=== PATIENT | male | born 1975 | race Caucasian/White ===

== ENCOUNTER → 2024-08-10 11:59 | Outpatient (CLI) | payer BC, OTHER, SELFPAY ==
--- NOTE | 2024-08-10 12:01 | DI.RAD.S_ITS ---
PROCEDURE: XR SINUS MIN 3V INDICATIONS: sinus congestion x 4 months, not improving TECHNIQUE: 3 views of the sinuses were acquired. COMPARISON: None. FINDINGS: Sinuses: The visualized sinuses demonstrate no air-fluid levels . There is haziness in the left maxillary sinus possibly a retention cyst. Bones: No suspicious bony lesions. Nasal septum is midline. IMPRESSION: No air-fluid levels to suggest acute sinusitis. Possible left maxillary retention cyst. Dictated by: Lacy Denise M.D. on 08/10/2024 at 13:36 Approved by: Lacy Denise M.D. on 08/10/2024 at 13:38
== END ==
LOC: RAD 12:00
PROVIDERS: PCP Family Medicine; Referring Provider Family Medicine; Visit Provider Family Medicine
DX: R09.81 Nasal congestion (principal)
CPT/HCPCS: 70220

== ENCOUNTER 2024-10-18 18:13 | Emergency (ER) | payer BC, OTHER, SELFPAY ==
[2024-10-18 18:16] VITALS: BP 127/76; PULSE 66; RESP 16; TEMP 36.1; O2SAT 97; BMI 29.5
--- NOTE | 2024-10-18 18:19 | DI.RAD.S_ITS ---
PROCEDURE: XR KNEE RT 3V INDICATIONS: pain TECHNIQUE: 3 views of the knee were acquired. COMPARISON: None. FINDINGS: Bones: No acute fractures or dislocations. No suspicious bony lesions. 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 Soft tissues: No joint effusion. No suspicious soft tissue calcifications. IMPRESSION: No acute osseous abnormality. If there is continued clinical concern or persistent symptoms, repeat radiographs or cross-sectional imaging (e.g. CT, MRI) may be helpful for further evaluation. Approved by: Tai Hickey M.D. on 10/18/2024 at 19:46
--- NOTE | 2024-10-18 20:42 | PC.NURSE ---
Pt states that he was helping in the garden about a week ago and lifted a potted plant. Since then has had pain, and once had his right knee go out from under him. Pt states that he bought a knee brace about 3 days ago. It is helping but, at work when he has to crouch down he has more pain.
--- NOTE | 2024-10-18 21:04 | ED.LOWEXIN ---
HPI - Extremity Injury (Lower) General Chief Complaint: Extremity Injury, Lower Stated Complaint: R knee weakness Time Seen by Provider: 10/18/24 21:04 Source: patient Mode of arrival: Ambulatory History of Present Illness HPI Narrative: 49-year-old male with past medical history of hyperlipidemia, comes into the ED from home for evaluation of nontraumatic right knee pain, states it happened a proximally 1 and half weeks ago, states it happened when he was bending and stood up, he has been using a knee brace with improvement but due to persistent symptoms decided come into the ED for further evaluation treatment. He denies any numbness weakness tingling to the lower extremity. Denies any other injuries. Related Data Home Medications Medication Instructions Recorded Confirmed atorvastatin 40 mg tablet 40 mg PO DAILY 08/10/24 08/10/24 loratadine 10 mg tablet (Claritin) 10 mg PO DAILY 08/10/24 08/10/24 Previous Rx's Medication Instructions Recorded cetirizine 10 mg capsule (Zyrtec) 10 mg PO DAILY #60 caps 08/10/24 fluticasone propionate 50 1 spray intranasal DAILY #16 grams 08/10/24 mcg/actuation nasal spray,suspension (Flonase Allergy Relief) naproxen 500 mg tablet (Naprosyn) 500 mg PO BID PRN pain 1 week #14 10/18/24 tabs Allergies Allergy/AdvReac Type Severity Reaction Status Date / Time No Known Drug Allergies Allergy Verified 10/18/24 18:16 Review of Systems Review of Systems Narrative: General: Denies fever, chills, weight loss HEENT: Denies headache, eye drainage, eye irritation, head trauma, sore throat, voice change Cardiovascular: Denies any chest pain, palpitations, tachycardia Respiratory: Denies any shortness of breath, cough, wheeze, stridor GI/: Denies any abdominal pain, nausea, vomiting, diarrhea, bright red blood per rectum, melanotic stools, urinary frequency, urinary retention, dysuria, hematuria MSK: Positive right knee pain Skin: Denies any rashes, lesions, discoloration Neuro: Denies any headache, lightheadedness, dizziness, fainting, weakness Psych: Denies SI/HI Patient History Medical History (Updated 10/18/24 @ 21:14 by Blaine Ryan DO) Sinus congestion Sleep apnea (~2023) Allergies Depression (~2016) Anxiety (~2016) Migraines (~2017) Headache (~2017) Foot pain (~2003) Ankle pain (~1992) Chicken pox (~1981) Tinnitus (~2011) History of urinary incontinence (~2023) Gastric ulcer (~2011) Surgical History (Updated 08/01/24 @ 18:50 by Cierra Diamond) Anesthesia [place] teeth removed (~1994) History of foot surgery (~07/24/23) Family History (Updated 08/01/24 @ 18:51 by Cierra Diamond) Father Diabetes mellitus History of heart disease Pancreatitis Mother Diabetes mellitus Smoking Status: Former smoker Exam Narrative Exam Narrative: General: Cooperative, well-developed, not in acute distress HEENT: Normocephalic, atraumatic, PERRLA, normal sclera, eyelids normal Neck: Active full range of motion, atraumatic Chest: Normal to inspection, negative crepitus, no overlying erythema ecchymosis Respiratory: Normal respiratory effort, not in acute respiratory distress, clear to auscultation bilaterally negative cough, wheeze, tachypnea, rhonchi, rales Cardiology: Regular rate rhythm negative gallop, murmur, rubs GI/: No tenderness to palpation, soft, non rigid, normal to inspection, exam deferred MSK: Patient without any tenderness to palpation of the bony prominence, full active and passive range of motion of the right knee, vascularly intact Skin: No rashes or lesions noted Neuro: Alert awake oriented x3, moves all 4 extremities spontaneously, cranial nerves intact, able to answer all questions appropriately follows commands appropriately Psych: Cooperative, negative suicidal or homicidal ideations Initial Vital Signs Initial Vital Signs: Vital Signs Temperature 97.0 F L 10/18/24 18:16 Pulse Rate 66 10/18/24 18:16 Respiratory Rate 16 10/18/24 18:16 Blood Pressure 127/76 10/18/24 18:16 Pulse Oximetry 97 10/18/24 18:16 Oxygen Delivery Method Room Air 10/18/24 18:16 Course Orders Ordered: ED Orders 10/18/24 18:19 XR knee RT 3V Stat Vital Signs Vital signs: Vital Signs - 8 hr 10/18/24 18:16 Temperature 97.0 F L Pulse Rate 66 Respiratory Rate 16 Blood Pressure 127/76 Pulse Oximetry 97 Oxygen Delivery Method Room Air MDM - Extremity Injury (Lower) Differential Diagnosis Differential diagnosis: Likely other (Knee fracture, knee sprain) Imaging Data Extremity x-ray #1: Radiologist's Impression: [address] [address] XRay Report Signed Patient: Justin Ledesma MR#: [id number] : 1975 Acct:[id number] Age/Sex: 49 / M Date of Service: 10/18/24 Loc: ED Accession Number: [id number] Procedure: XR knee RT 3V Ordering Provider: Blaine Ryan D.O. PROCEDURE: XR KNEE RT 3V INDICATIONS: pain TECHNIQUE: 3 views of the knee were acquired. COMPARISON: None. FINDINGS: Bones: No acute fractures or dislocations. No suspicious bony lesions. 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 Soft tissues: No joint effusion. No suspicious soft tissue calcifications. IMPRESSION: No acute osseous abnormality. If there is continued clinical concern or persistent symptoms, repeat radiographs or cross-sectional imaging (e.g. CT, MRI) may be helpful for further evaluation. [facility] Narrative Medical decision making narrative: 41-year-old male history of hyperlipidemia presenting for a nontraumatic right knee pain started approximately 1 and half weeks ago when he was bending and stood up. He states that he has had improvement of symptoms by using an [id number] knee brace but due to persistent symptoms decided come into the ED for further evaluation treatment. On exam patient lower extremity neurovascularly intact, he is able to stand bear weight ambulate unassisted. He has no overlying erythema ecchymosis gross deformity. X-ray was performed without any acute traumatic injuries. Patient was offered crutches and knee immobilizer with but he states that his [id number] 1 is more than enough. I instructed the patient to follow up with his primary care and orthopedic surgery in outpatient setting he was given strict return precautions he verbalized understanding of this and agrees to being discharged home with outpatient follow up Discharge Plan Departure Patient Disposition: Home Clinical Impression: Acute pain of right knee Instructions: DI for Knee Pain Activity Restrictions/Additional Instructions: Please follow up with the primary care and orthopedic surgery if your symptoms persist Please read the discharge instructions sheet carefully and bring all papers to all doctor follow-up visits, as it may contain information that your doctor may want to see. Disease processes change and evolve, if your symptoms worsen or if you develop any new symptoms that are concerning to you please return for evaluation. Your evaluation today does not show any evidence of any life-threatening/serious illnesses requiring admission to the hospital or surgery. Please follow-up with your doctor for re-evaluation in approximately 1 day. Seek immediate medical attention for any worrisome symptoms. *If you do not have a primary care provider please contact the [facility] Resource line at [phone]. They will ask some questions about your medical history and help get you set up with a doctor in the community. Prescriptions: New naproxen [Naprosyn] 500 mg tablet 500 mg PO BID PRN (Reason: pain) 7 Days Qty: 14 0RF No Action atorvastatin 40 mg tablet 40 mg PO DAILY loratadine [Claritin] 10 mg tablet 10 mg PO DAILY Zyrtec 10 mg capsule 10 mg PO DAILY Qty: 60 0RF fluticasone propionate [Flonase Allergy Relief] 50 mcg/actuation spray,suspension 1 spray intranasal DAILY Qty: 16 0RF Rx Instructions: administer into each nostril Referrals: Love Levine MD [Primary Care Provider] - Stand Alone Forms: Patient Portal/API/Survey
== END 2024-10-18 21:20 | disposition home or self-care (01) ==
PROVIDERS: Emergency Provider Student in an Organized Health Care Education/Training Program; PCP Family Medicine
DX: M25.561 Pain in right knee (principal)
CPT/HCPCS: 73562; 99281; 99283

== ENCOUNTER → 2024-11-14 15:39 | Outpatient (CLI) | payer BC, OTHER, SELFPAY ==
[2024-11-14 17:37] LABS: Cholesterol 169 mg/dL (140-199); HDL Cholesterol 49 mg/dL (40-60); LDL Cholesterol Calculated 104 mg/dL (<100); Triglycerides 79 mg/dL (35-150)
== END ==
PROVIDERS: PCP Family Medicine; Referring Provider Family Medicine; Visit Provider Family Medicine
DX: E78.5 Hyperlipidemia, unspecified (principal); Z13.1 Encounter for screening for diabetes mellitus
CPT/HCPCS: 36415; 80061; 83036

== ENCOUNTER → 2025-03-01 15:48 | Outpatient (CLI) | payer BC, OTHER, SELFPAY ==
--- NOTE | 2025-03-01 15:49 | DI.RAD.S_ITS ---
PROCEDURE: XR FOOT LT 2V INDICATIONS: discoordinated gait, PT requestig assessment of great toe TECHNIQUE: 3 views of the foot were acquired. COMPARISON: None. FINDINGS: Bones: Moderate metatarsus abductus and slight hammertoe deformities 2nd through 5th digits. There is dorsal spurring over the 1st MTT region . 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 There is mild degeneration of the interphalangeal joints Soft tissues: No soft tissue abnormality. IMPRESSION: Chronic findings Dictated by: Roni Schneider M.D. on 03/02/2025 at 11:06 Approved by: Roni Schneider M.D. on 03/02/2025 at 11:07
--- NOTE | 2025-03-01 15:49 | DI.RAD.S_ITS ---
PROCEDURE: XR FOOT RT 2V INDICATIONS: discoordinated gait TECHNIQUE: Two views of the foot were acquired. COMPARISON: None. FINDINGS: Bones: There are no osseous abnormalities Joints: Severe 1st MTP and moderate 2nd through 5th DIP degeneration noted Soft tissues: Mild diffuse soft tissue swelling IMPRESSION: Degeneration Dictated by: Roni Schneider M.D. on 03/02/2025 at 11:07 Approved by: Roni Schneider M.D. on 03/02/2025 at 11:08
== END ==
PROVIDERS: PCP Family Medicine; Referring Provider Family Medicine; Visit Provider Family Medicine
DX: M19.072 Primary osteoarthritis, left ankle and foot (principal); M19.071 Primary osteoarthritis, right ankle and foot; M21.6X2 Other acquired deformities of left foot; R26.9 Unspecified abnormalities of gait and mobility; M25.569 Pain in unspecified knee
CPT/HCPCS: 73620

== ENCOUNTER 2025-04-28 08:11 | Emergency (ER) | payer BC, OTHER, SELFPAY ==
[2025-04-28] VITALS (7 sets, daily range): BP systolic 115–136; BP diastolic 56–75; PULSE 77–90; RESP 16–18; TEMP 37.6; O2SAT 94–98; BMI 31.5
--- NOTE | 2025-04-28 08:41 | DI.RAD.S_ITS ---
PROCEDURE: XR CHEST 1V INDICATIONS: short of breath TECHNIQUE: One view of the chest was acquired. COMPARISON: None. FINDINGS: Surgical changes and devices: None. Lungs and pleura: Lungs are clear. No pleural effusions or pneumothorax. Mediastinum: Mediastinal contours appear normal. Heart size is normal. Bones and chest wall: No suspicious bony lesions. Overlying soft tissues appear unremarkable. IMPRESSION: No acute cardiopulmonary abnormality is seen. Dictated by: Dandre Ernandez M.D. on 04/28/2025 at 8:58 Approved by: Dandre Ernandez M.D. on 04/28/2025 at 9:02
[2025-04-28 09:00] LABS: Strep Grp A by PCR Rapid Negative (Negative)
[2025-04-28] MEDS: BENZONATATE 100 MG CAPSULE PO (09:02)
[2025-04-28 09:08] LABS: Influenza A - CEPHEID Flu A POSITIVE (NEGATIVE); Influenza B - CEPHEID Flu B NEGATIVE (NEGATIVE)
[2025-04-28 09:09] LABS: COVID-19 CEPHEID 4-PLEX PCR Negative (Negative)
[2025-04-28] MEDS: ALBUTEROL 2.5 MG/3 ML NEB (ADULT) INH (09:50)
--- NOTE | 2025-04-28 20:17 | ED.SOB ---
HPI - SOB/Dyspnea General Chief Complaint: Shortness of Breath/Dyspnea Stated Complaint: Fever, cough feels like there is hot sand in lungs Time Seen by Provider: 04/28/25 08:17 Source: patient Mode of arrival: Ambulatory Limitations: no limitations History of Present Illness HPI Narrative: This 49 yo male presents with sore throat and cough and aches and shortness of breath for 2 days. No known infectious contacts. Patient is a former smoker. MD Complaint: shortness of breath and cough Consistency/Duration: constant Relieving factors: bronchodilators Related Data Previous Rx's ?Medication ?Instructions ?Recorded atorvastatin 40 mg tablet 40 mg PO DAILY #90 tabs 03/31/25 cetirizine 10 mg capsule (Zyrtec) 10 mg PO DAILY #60 caps 03/31/25 ciclopirox 8 % topical solution 1 applic topical BEDTIME #6.6 mL 03/31/25 fluticasone propionate 50 1 spray intranasal DAILY #16 grams 03/31/25 mcg/actuation nasal spray,suspension (Flonase Allergy Relief) ibuprofen 800 mg tablet 800 mg PO Q8H PRN pain #60 tabs 03/31/25 albuterol sulfate 90 mcg/actuation 2 inh inhalation Q6H as needed for 04/28/25 breath activated powder inhaler shortness of breath #1 ea benzonatate 200 mg capsule 200 mg PO BID PRN cough #20 caps 04/28/25 dexamethasone 6 mg tablet 6 mg PO DAILY #5 tabs 04/28/25 oseltamivir 75 mg capsule (Tamiflu) 75 mg PO BID 5 days #10 caps 04/28/25 Allergies Allergy/AdvReac Type Severity Reaction Status Date / Time No Known Drug Allergies Allergy Verified 04/28/25 08:19 Review of Systems Review of Systems ROS Unobtainable: All systems reviewed & are unremarkable except as noted in HPI and below Constitutional Comments: Malaise secondary to cough and shortness of breath ENT Comments: sore throat for 2 days. Cardiovascular Cardiovascular: Reports system reviewed and no additional complaints, except as documented Respiratory Comments: cough and shortness of breath for 2 days Gastrointestinal Gastrointestinal: Reports system reviewed and no additional complaints, except as documented Genitourinary Genitourinary: Reports system reviewed and no additional complaints, except as documented Musculoskeletal Comments: diffuse muscle aches Neurologic Neurologic: Reports system reviewed and no additional complaints, except as documented Patient History Medical History (Updated 04/28/25 @ 09:51 by Maria Eugenia Godoy MD) Onychomycosis HLD (hyperlipidemia) Sinus congestion Sleep apnea (~2023) Allergies Depression (~2016) Anxiety (~2016) Migraines (~2017) Headache (~2017) Foot pain (~2003) Ankle pain (~1992) Chicken pox (~1981) Tinnitus (~2011) History of urinary incontinence (~2023) Gastric ulcer (~2011) Surgical History (Updated 08/01/24 @ 18:50 by Cierra Diamond) Anesthesia [place] teeth removed (~1994) History of foot surgery (~07/24/23) Family History (Updated 08/01/24 @ 18:51 by Cierra Diamond) Father Diabetes mellitus History of heart disease Pancreatitis Mother Diabetes mellitus Smoking Status: Former smoker tobacco type: smokeless tobacco Exam Initial Vital Signs Initial Vital Signs: Vital Signs Pulse Rate 88 04/28/25 08:17 Blood Pressure 136/75 04/28/25 08:17 Pulse Oximetry 97 04/28/25 08:17 Const Other: Malaise secondary to sore throat and cough HENMT HENMT Other: Posterior pharyngeal hyperemia with slight exudate Neck Neck: normal visual inspection Other: No stridor Resp Other: Occasional rhonchus, no wheezes, Cardio Rate: tachycardic Rhythm: regular rhythm GI Other: Nontender, adequate BS Course Orders Ordered: Discontinued Medications Albuterol (Albuterol 2.5 Mg/3 Ml Neb (Adult)) 2.5 mg INH NOW ONE Stop: 04/28/25 09:16 Last Admin: 04/28/25 09:50 Dose: 2.5 mg Documented By: HONG Benzonatate (Benzonatate 100 Mg Capsule) 100 mg PO NOW ONE Stop: 04/28/25 08:54 Last Admin: 04/28/25 09:02 Dose: 100 mg Documented By: CHELE Dexamethasone (Dexamethasone 10 Mg/Ml Vial) 10 mg IM NOW ONE Stop: 04/28/25 08:54 Last Admin: 04/28/25 09:02 Dose: 10 mg Documented By: CHELE MDM - SOB/Dyspnea Lab Data Labs: Lab Results 04/28/25 Range/Units 08:27 SARS-CoV-2 (PCR) Negative (Negative) Influenza A (RT-PCR) Flu a positive H (NEGATIVE) Influenza B (RT-PCR) Flu b negative (NEGATIVE) RSV (PCR) Negative (Negative) Group A Strep (PCR) Negative (Negative) MDM Narrative Medical decision making narrative: This patient presents with sore throat, cough, and shortness of breath for 2 days. Lab reveals tested positive for influenza A. Given prescription for tamiflu and tessalon Perles and dexamethasone 6 mg daily for 5 days and an albuterol inhaler., Given dexamethasone in ER for breathing and cough and Tessalon Perles, and Albuterol inhaler. [place] better. Follow-up 2 days if no better. Discharge Plan Departure Patient Disposition: Home Clinical Impression: Influenza A Activity Restrictions/Additional Instructions: Rest for 2-3 days Prescriptions: New oseltamivir [Tamiflu] 75 mg capsule 75 mg PO BID 5 Days Qty: 10 0RF dexamethasone 6 mg tablet 6 mg PO DAILY Qty: 5 0RF benzonatate 200 mg capsule 200 mg PO BID PRN (Reason: cough) Qty: 20 0RF albuterol sulfate 90 mcg/actuation aerosol powdr breath activated 2 inh inhalation Q6H Qty: 1 0RF No Action ibuprofen 800 mg tablet 800 mg PO Q8H PRN (Reason: pain) Qty: 60 0RF fluticasone propionate [Flonase Allergy Relief] 50 mcg/actuation spray,suspension 1 spray intranasal DAILY Qty: 16 0RF Rx Instructions: administer into each nostril ciclopirox 8 % solution 1 applic topical BEDTIME Qty: 6.6 2RF atorvastatin 40 mg tablet 40 mg PO DAILY Qty: 90 0RF Zyrtec 10 mg capsule 10 mg PO DAILY Qty: 60 0RF Referrals: Love Levine MD [Primary Care Provider, Family Practice] Stand Alone Forms: Patient Portal/API
== END 2025-04-28 10:38 | disposition home or self-care (01) ==
PROVIDERS: Emergency Provider Emergency Medicine; PCP Family Medicine
DX: J10.1 Influenza due to other identified influenza virus with other respiratory manifestations (principal)
CPT/HCPCS: 71045; 87637; 87651; 94640; 96372; 99284; A9270; J1100; J7613